=== PATIENT | female | born 1965 | race Caucasian/White ===

== ENCOUNTER 2016-10-28 06:52 | Emergency (ER) | payer OTHER ==
[~2016-10-28] VITALS: Ht 157.5 cm; Wt 73.6 kg
[2016-10-28 08:07] LABS: HEMATOCRIT 38.1 % (36.0-46.0); MCH 30.4 PG (29.0-34.0); MCHC 34.6 G/DL (30.0-36.0); MCV 87.8 FL (83-99); MEAN PLAT.VOLUME 10.1 uM^3 (9.5-12.4); PLATELET COUNT 236 K/uL (156-360); RBC DIS.WIDTH-CV 11.9 % (11.8-14.6); RBC DIS.WIDTH-SD 37.6 % (39-53); RED BLOOD COUNT 4.34 M/uL (3.80-5.20); WHITE BLOOD COUNT 6.1 K/uL (4.1-10.2)
[2016-10-28 08:18] LABS: CHLORIDE 111 mEq/L (99-109); POTASSIUM 3.9 mEq/L (3.7-5.4); SODIUM 144 mEq/L (136-147)
[2016-10-28 08:19] LABS: GLUCOSE 101 mg/dL (70-99)
[2016-10-28 08:21] LABS: ANION GAP 11 MEQ/L (2-14)
[2016-10-28 08:23] LABS: GFR ESTIMATE (CALCULATED) > 59 mL/min/
[2016-10-28 08:24] LABS: UREA NITROGEN (BUN) 13 mg/dL (9-23)
[2016-10-28 08:29] LABS: TROP-I INTERPRETATION NEGATIVE; TROPONIN-I < 0.01 ng/mL (0.0-0.30)
[2016-10-28 11:48] LABS: TROP-I INTERPRETATION NEGATIVE; TROPONIN-I < 0.01 ng/mL (0.0-0.30)
[2016-10-28 12:00] VITALS: BP 88/60
== END 2016-10-28 14:19 | disposition home or self-care (01) ==
LOC: EME 06:52
PROVIDERS: Emergency Medicine
DX: R07.89 Other chest pain (principal); Z87.891 Personal history of nicotine dependence
CPT/HCPCS: 71010; 80048; 84484; 85027; 93005; 99281; 99284; J7030